=== PATIENT | male | born 1970 | race Caucasian/White ===

== ENCOUNTER 2016-07-19 21:49 | Emergency (ER) | payer MEDICARE, OTHER ==
[~2016-07-19] VITALS: Ht 162.6 cm; Wt 55.0 kg
[~2016-07-19 21:49] MED LIST: FLEXERIL PO; GABAPENTIN300 MG PO; VICODIN ES1 TA1 PO; VICODIN1 TA1 PO
[2016-07-19] MEDS ORDERED: FENTANYL50 MCG/HR TD (22:00)
[2016-07-19] MEDS ORDERED: OXYCODONE/ACETA1 TAB PO (22:00)
[2016-07-19] MEDS ORDERED: XANAX0.5 MG PO (22:01)
[2016-07-19] MEDS ORDERED: AMOXICILLIN500 MG PO (22:50)
[2016-07-19 23:15] VITALS: BP 129/89
== END 2016-07-19 23:15 | disposition home or self-care (01) ==
LOC: ED 21:49
PROC: 0HQ6XZZ Repair Back Skin, External Approach (ICD-10-PCS; principal; 2016-07-19)
DX: T81.30XA Disruption of wound, unspecified, initial encounter (principal); H60.502 Unspecified acute noninfective otitis externa, left ear

== ENCOUNTER 2017-10-05 12:12 | Observation (INO) | payer SELFPAY ==
[~2017-10-05] VITALS: Ht 162.6 cm; Wt 60.0 kg
[~2017-10-05 12:12] MED LIST changes: +AMOXICILLIN500 MG PO; +FENTANYL50 MCG/HR TD; +OXYCODONE/ACETA1 TAB PO; +XANAX0.5 MG PO
--- NOTE | 2017-10-05 12:22 | NUR ---
TO TX ROOM WITH STEADY GAIT
--- NOTE | 2017-10-05 12:29 | NUR ---
PT STATES HE WAS STUCK IM THE HAND BY A [place] FISH FIN THE LEFT PLAMER THUMB, ON 12/01/17, PT STATES HIS HAND HAS SWOLLEN MORE SINCE LAST NIGHT AND HAS NOTICED THE REDNESS MOVING FURTHER UP HIS ARM SINCE LAST NIGHT. PT STATES SOME PAIN IN UPPER ARM AT THE JOINT. PT IS AOX4. DENIES C/P, SOB, N/V OR WEAKNESS.
[2017-10-05 13:11] LABS: HEMATOCRIT 37.9 % (39.0-50.0); HEMOGLOBIN 12.9 g/dl (14.0-18.0); IMMATURE GRANULOCYTES 0.3 % (0.0-1.0); MEAN CELL VOLUME 95.2 fL CALC (80.0-100.0); MEAN CORPUSCULAR HGB 32.4 pG CALC (26.0-32.0); NEUT# 9.53 thou/uL (1.82-7.42); RED BLOOD COUNT 3.98 mill/uL (4.70-6.10)
--- NOTE | 2017-10-05 13:22 | NUR ---
MULTIPLE IV'S ATTEMPTED BUT UNSUCCESSFUL. ATTEMPTING.
[2017-10-05 13:46] LABS: ANION GAP 14 (6-22 (CALC)); BUN 18 mg/dL (9-20); BUN/CREATININE RATIO 29 (12-20 (CALC)); CARBON DIOXIDE 25 mmol/l (22-30); CHLORIDE 103 mmol/l (95-108); CREATININE 0.6 mg/dL (0.7-1.3); GFR > 60 ML/MIN (>=60 (CALC)); GFR FOR AFR.AMER. > 60 ML/MIN (>=60 (CALC)); POTASSIUM 3.9 mmol/l (3.5-5.1); SODIUM 138 mmol/l (137-146)
--- NOTE | 2017-10-05 13:52 | NUR ---
CENTRAL LINE PLACED UNDER STERILE PROCEDURE BY
--- NOTE | 2017-10-05 14:41 | NUR ---
PT RESTING ON STRETCHER, FLUIDS RUNNING WITH NO PAIN. AT BEDSIDE. PT STATES HAVING BACK DISCOMFORT, ATTEMPTING TO REPOSITION SELF FOR COMFORT.
--- NOTE | 2017-10-05 15:37 | NUR ---
PT ASLEEP ON ALFRED NICHOLSON CONTINUING TO RUN. PT REQUESTED A WARM BLANKET AND WAS GIVEN.
--- NOTE | 2017-10-05 16:16 | NUR ---
REPORT ATTMEPTED TO [facility]- WILL RETURN CALL
--- NOTE | 2017-10-05 16:33 | NUR ---
REPORT GIVEN TO [facility]
--- NOTE | 2017-10-05 16:47 | NUR ---
Admission Note Report Given to: SANTOS GRAHAM Transported by: Wheelchair X Stretcher Transported with: X Nurse Transporter X Patent IV O2 Associate Pastor TRANSPORTED TO [facility] WITHOUT INCIDENT
[2017-10-05 16:55] VITALS: BP 154/88
--- NOTE | 2017-10-05 17:00 | NUR ---
PT ADMITTED TO [facility] VIA STRETCHER ACCOMPANIED BY ER STAFF. PT ALERT AND ORIENTED X3, AMBULATES WITH STEADY GAIT. NO SIGNS OF DISTRESS NOTED, RESP EVEN AND UNLABORED. PT HAD CA REMOVAL TO L ELBOW APPOX 2 WEEKS AGO TOMORROW, SITE HAS 8 SUTURES INTACT, MAPLE [employer]. 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 TETANUS INJ GIVEN IN ER. NOTED SWELLING TO AREA, RADIAL PULSE WEAK, CAPILLARY REFILL IS BRISK. ADMISSION ASSESSMENT COMPLETED. PHOTOS OBTAINED SEE CHART.CALL LIGHT IN REACH, CONTINUE TO MONITOR.
--- NOTE | 2017-10-05 20:00 | NUR ---
PATIENT RETURNED TO THE FLOOR FROM RADIOLOGY VIA WHEELCHAIR. PATIENT IS AWAKE ALERT AND ORIENTEDX3. CT OF LEFT HAND AND ARM COMPLETED. PATIENT BACK IN BED. PATIENT WITH REDNESS SWELLING AND PAIN TO LEFT HAND AND LEFT THUMB.-SCANT AMT OF DRAINAGE NOTED FROM LEFT THUMB-BANDAID APPLIED. PATIENT WITH BLISTER TO LEFT MIDDLE FINGER WITH SCANT AMT OF SEROUS FLUID. BANDAID APPLIED. ALSO WITH SUTURE TO LEFT ELBOW-HAD SKIN CANCER REMOVED BY DERMATOLOGY A COUPLE WEEKS AGO AND IS SCHEDULED FOR REMOVAL TOMMORROW-SCANT DRAINAGE NOTED.COVERED WITH LARGE BANDAID. PATIENT WITH RIGHT IJ TLC INTACT AND APPEARS HEALTHY AT THIS TIME. SAFETY PRECAUTIONS REINFORCED. CALL LIGHT IN REACH. WILL CONT TO MONITOR.
[2017-10-05 20:03] VITALS: BP 144/59
--- NOTE | 2017-10-06 00:18 | NUR ---
PATIENT RESTING IN BED-ZOSYN INFUSED ORDERED. MEDICATED FOR BACK PAIN AND LEFT HAND AND THUMB PAIN WITH PERCOCET 10/325MG PO. SON RESTING ON COT PROVIDED. LEFT HAND AND THUMB COVERED WITH LARGE BANDAID, MIDDLE FINGER TO LEFT HAND COVERED WITH BANDAID. BANDAID ALSO COVERED LEFT ELBOW INCISION FROM WHERE SKIN CANCER WAS REMOVED A COUPLE OF WEEKS AGO. STATES THAT HE WAS SUPPOSED TO HAVE THEM REMOVED TOMMORROW. LEFT ARM IS ELEVATED ON PILLOWS. CALL LIGHT IN REACH. WILL CONT TO MONITOR.
[2017-10-06 00:39] VITALS: BP 136/69
--- NOTE | 2017-10-06 02:13 | NUR ---
APPEARS SLEEPING AT THIS TIME WITH EYES CLOSED. LEFT ARM ELEVATED ON PILLOWS. CALL LIGHT IN REACH. WILL CONT TO MONITOR.
--- NOTE | 2017-10-06 04:33 | NUR ---
PATIENT RESTING IN BED-EASY TO AROUSE. LAB WORK DRAWN FROM RIGHT IJ TLC WITHOUT ANY DIFFICULTY. ALL PORTS WERE FLUSHED PER PROTOCOL WITH GOOD BLOOD RETURNS. NO COMPLAINTS AT THIS TIME. CALL LIGHT IN REACH. WILL CONT TO MONITOR.
[2017-10-06 05:06] VITALS: BP 124/65
[2017-10-06 05:18] LABS: HEMATOCRIT 35.9 % (39.0-50.0); IMMATURE GRANULOCYTES 0.5 % (0.0-1.0); MEAN CELL VOLUME 96.5 fL CALC (80.0-100.0); MEAN CORPUSCULAR HGB 32.3 pG CALC (26.0-32.0); MEAN CORPUSCULAR HGB CONC 33.4 g/L CALC (32.0-36.0); NEUT# 4.72 thou/uL (1.82-7.42); RED BLOOD COUNT 3.72 mill/uL (4.70-6.10)
[2017-10-06 05:53] LABS: ALBUMIN 3.3 g/dL (3.2-5.0); ALKALINE PHOSPHATASE 64 u/l (38-126); ANION GAP 8 (6-22 (CALC)); BILIRUBIN, TOTAL 0.5 mg/dL (0.0-1.4); BUN 13 mg/dL (9-20); BUN/CREATININE RATIO 21 (12-20 (CALC)); CARBON DIOXIDE 28 mmol/l (22-30); CHLORIDE 105 mmol/l (95-108); CREATININE 0.6 mg/dL (0.7-1.3); GFR > 60 ML/MIN (>=60 (CALC)); GFR FOR AFR.AMER. > 60 ML/MIN (>=60 (CALC)); POTASSIUM 3.8 mmol/l (3.5-5.1); SGOT/AST 19 u/l (17-59); SGPT/ALT 31 u/l (21-72); SODIUM 137 mmol/l (137-146)
--- NOTE | 2017-10-06 06:00 | NUR ---
PATIENT RESTING IN BED-ZOSYN INFUSING. MEDICATED FOR PAIN 10/10 ON PAIN SCALE WITH PERCOCET 10/325MG PO. CALL LIGHT IN REACH. WILL CONT TO MONITOR.
[2017-10-06 07:55] VITALS: BP 117/72
--- NOTE | 2017-10-06 07:55 | NUR ---
ASSESSMENT IS COMPLTED; PT IS RELAXING IN BED WITH NO DISTRESS NOTED. IV SITE IS FREE FROM REDNESS OR EDEMA. DRESSING ON LEFT ELBOW HAS SOME DRAINAGE NOTED. HR IS REG,PULSES ARE STRONG X4, ABD IS SOFT WITH ACTIVE BS, CONTINUE TO OSBERVE AND MONTIOR.
--- NOTE | 2017-10-06 10:41 | NUR ---
Drug Selected: Vancomycin Age: 46 years Weight: 60 kg Height: 64 in Gender: Male SCR: 0.6 mg/dl CRCL (ml/min): 127.4 Give Vancomycin 1250 mg q12 hrs NEXT TROUGH WILL BE 10/07/17 @1930 SSTI
--- NOTE | 2017-10-06 12:30 | NUR ---
PT IS RELAXING IN BED WITH NO DISTRESS NOTED. IV SITE IS FREE FROM REDNESS OR EDEMA. DRESSING AND SUTURES REMOVED ON LEFT ELBOW. SOME YELLOW DRAINAGE NOTED. PT TOLERATED WELL. CONTINUE TO OSBERVE AND MONITOR. USING CLEAN TECHNIQUE.
[2017-10-06 15:15] VITALS: BP 140/62
--- NOTE | 2017-10-06 16:15 | NUR ---
PT IS RELAXING IN BED WITH NO DISTRESS NOTED. IV SITE IS FREE FROM REDNESS OR EDEMA. CONTINUE TO OSBERVE ANDMONITOR.
[2017-10-06 19:15] VITALS: BP 125/77
--- NOTE | 2017-10-06 19:23 | NUR ---
REPORT RECEIVED FROM DAY NURSE. PT.IS UPRIGHT IN BED, NO S/S OF DISTRESS NOTED. PT.IS WATCHING TV W/LIGHTS OFF. CALL LIGHT AT BEDSIDE AND PT.ENCOURAGED TO CALL IF ANY NEEDS ARISE.
--- NOTE | 2017-10-06 22:05 | NUR ---
PT.ANTIBIOTIC THERAPY IS COMPLETED AT THIS TIME, IV FLUSHED/SITE APPEARS HEALTHY. PT.DENIES ANY OTHER NEEDS AT THIS TIME. CALL LIGHT AT BEDSIDE.
--- NOTE | 2017-10-06 23:50 | NUR ---
PT.MEDICATED W/IV ANTIBIOTIC THERAPY. PT.WAS SLEEPING UPON ENTERING ROOM. LIGHTS OUT AND TV ON LOW. NO S/S OF DISTRESS NOTED.
--- NOTE | 2017-10-07 00:35 | NUR ---
PT.MEDICATED FOR PAIN REPORTED 11/28. NO S/S OF DISTRESS NOTED. WILL CONTINUE TO MONITOR. IV ANTIBIOTIC THERAPY IS COMPLETE AT THIS TIME. IVJ FLUSHED. CALL LIGHT AT BEDSIDE AND PT.INSTRUCTED TO CALL IF ANY OTHER NEEDS ARISE.
[2017-10-07 04:10] VITALS: BP 116/69
--- NOTE | 2017-10-07 04:30 | NUR ---
PT.WAS SLEEPING I ENTERED THE ROOM. BLOOD DRAWN FOR LABS FROM IJ SITE. ALL 3X LUMENS FLUSHED AT THIS TIME. PT.REQUESTED OJ TO DRINK/PROVIDED. DENIED ANY OTHER NEEDS. CALL LIGHT AT BEDSIDE. LIGHTS AND TV OFF.
[2017-10-07 04:44] LABS: HEMATOCRIT 34.5 % (39.0-50.0); HEMOGLOBIN 11.4 g/dl (14.0-18.0); IMMATURE GRANULOCYTES 0.2 % (0.0-1.0); MEAN CELL VOLUME 97.2 fL CALC (80.0-100.0); MEAN CORPUSCULAR HGB 32.1 pG CALC (26.0-32.0); NEUT# 2.69 thou/uL (1.82-7.42); RED BLOOD COUNT 3.55 mill/uL (4.70-6.10); RED CELL DISTRI WIDTH 11.9 % (11.5-15.5)
[2017-10-07 05:19] LABS: ANION GAP 7 (6-22 (CALC)); BUN 11 mg/dL (9-20); BUN/CREATININE RATIO 17 (12-20 (CALC)); CARBON DIOXIDE 27 mmol/l (22-30); CHLORIDE 108 mmol/l (95-108); CREATININE 0.6 mg/dL (0.7-1.3); GFR > 60 ML/MIN (>=60 (CALC)); GFR FOR AFR.AMER. > 60 ML/MIN (>=60 (CALC)); POTASSIUM 4.1 mmol/l (3.5-5.1); SODIUM 138 mmol/l (137-146)
--- NOTE | 2017-10-07 05:59 | NUR ---
PT.IS SLEEPING AWOKE TO MY VOICE. MEDICATED W/IV ANTIBIOTIC THERAPY AT THIS TIME. NO S/S OF DISTRESS NOTED.
[2017-10-07 07:55] VITALS: BP 127/56
--- NOTE | 2017-10-07 07:55 | NUR ---
ASSESSMENT IS COMPLTED: IV SITE IS FREE FROM REDNESS OR EDEMA , HR RATE IS REG, PULSES ARE STRONG X4, ABD IS SOFT WITH ACTIVE BS,. DRESSING ON LEFT ARM WAS CHANGED AND CLEANED WITH NS. REPLACED WITH BANDAIDS. CONTINUE TO OBSERVE AND MONITOR.
--- NOTE | 2017-10-07 12:00 | NUR ---
PT IS SITTING IN BED WAITING FOR THE DR TO DISCHARGE. IV SITE IS FREE FROM REDNESS OR EDEMA.
--- NOTE | 2017-10-07 14:23 | NUR ---
PT'S IV SITE DISCONTINEUD BY JUANPABLO MARIO AND Renee FLETCHER RN. PT TOLERATED WELL. DRESSING CHANGE ON LEFT ELBOW MINIMAL AMOUNT OF DRAINAGE NOTED. DISCHARGE INSTRUCTIONS GIVEN AND VERBALIZED UNDERSTANDING. CONTINUE TO OBSERVE AND MONITOR.
--- NOTE | 2017-10-07 14:25 | NUR ---
Discharge instructions given. Patient verbalizes understanding of same. Discharged in stable condition via Ambulatory to Home with family. All belongings sent with pt.
== END 2017-10-07 14:23 | disposition home or self-care (01) | DRG 603 ==
LOC: ED 12:12 → ED-I 15:27 → ED 15:37 → MS2 15:38
PROVIDERS: Family Medicine; Nurse Practitioner; Nurse Practitioner Family; ADMIT Internal Medicine; ATTEND Internal Medicine
PROC: 02HV33Z Insertion of Infusion Device into Superior Vena Cava, Percutaneous Approach (ICD-10-PCS; principal; 2017-10-05)
DX: L03.012 Cellulitis of left finger (principal); T81.4XXA Infection following a procedure, initial encounter; L03.114 Cellulitis of left upper limb; F17.210 Nicotine dependence, cigarettes, uncomplicated; C44.629 Squamous cell carcinoma of skin of left upper limb, including shoulder; S61.032A Puncture wound without foreign body of left thumb without damage to nail, initial encounter; G89.29 Other chronic pain; M54.9 Dorsalgia, unspecified; B95.4 Other streptococcus as the cause of diseases classified elsewhere; W56.52XA Struck by other fish, initial encounter; Y83.8 Other surgical procedures as the cause of abnormal reaction of the patient, or of later complication, without mention of misadventure at the time of the procedure; Z92.3 Personal history of irradiation; Z85.01 Personal history of malignant neoplasm of esophagus; Z92.21 Personal history of antineoplastic chemotherapy; Z79.891 Long term (current) use of opiate analgesic
CPT/HCPCS: G0378; J1650; J3370